=== PATIENT | female | born 2000 | race Caucasian/White ===

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

== ENCOUNTER 2020-05-10 11:47 | Emergency (ER) | payer OTHER, SELFPAY ==
--- NOTE | 2020-05-10 14:01 | REP ---
Left wrist series: Four views. History: Left upper extremity pain after trauma. Kicked by a horse. Findings: For views of the left wrist demonstrate normal bones, joints, and soft tissues. No fracture or subluxation is seen. Impression: Negative radiographs of the left wrist. Electronically Signed by Gage Gregory MD 05/10/2020 01:53 P
--- NOTE | 2020-05-10 14:02 | REP ---
Left hand series: Four views. History: Left hand pain after being kicked by horse. Findings: Four views of the left hand demonstrate soft tissue swelling and possible subtle irregularity along the radial aspect of the second MCP joint. Overall mineralization pattern is normal. No fractures seen. No opaque foreign body is noted. Impression: No evidence of fracture or opaque foreign body seen. Electronically Signed by Gage Gregory MD 05/10/2020 01:54 P
[2020-05-10] MEDS ORDERED: BOOSTRIX/ADACEL VACCINE (DIPHTH/PERTUSS/ACELL/TETANUS) 0.5ML SYR IM ONE (14:15)
[2020-05-10] MEDS ORDERED: IBUPROFEN 800 MG TAB PO ONE (14:15)
[2020-05-10 14:25] VITALS: BP 106/72
== END 2020-05-10 14:45 | disposition home or self-care (01) ==
LOC: M ED 11:47
DX: S60.512A Abrasion of left hand, initial encounter (principal); S60.222A Contusion of left hand, initial encounter; S60.212A Contusion of left wrist, initial encounter; W55.82XA Struck by other mammals, initial encounter; Y92.89 Other specified places as the place of occurrence of the external cause; Y93.K9 Activity, other involving animal care; Y99.8 Other external cause status; F17.290 Nicotine dependence, other tobacco product, uncomplicated

== ENCOUNTER 2021-03-28 08:55 | Emergency (ER) | payer OTHER, SELFPAY ==
[~2021-03-28] VITALS: Ht 165.1 cm; Wt 79.5 kg
[2021-03-28] MEDS ORDERED: KETOROLAC 60MG 2ML VIAL IM ONE (11:35)
[2021-03-28 11:49] LABS: BASO % 0.2 % (0.0-1.0); EOS % 0.6 % (0.0-3.0); HEMATOCRIT 44.8 % (36.0-47.0); LYMPH # 1.3 10^3/uL (1.5-5.0); LYMPH % 26.9 % (24.0-44.0); MEAN CORPUSCULAR HEMOGLOBIN 29.3 pg (27.0-33.0); MEAN CORPUSCULAR HGB CONC 33.5 g/dl (32.0-36.5); MEAN CORPUSCULAR VOLUME 87.5 fl (80.0-96.0); MONO # 0.3 10^3/uL (0.0-0.8); MONO % 6.7 % (2.0-8.0); NEUTROPHILS # 3.1 10^3/uL (1.5-8.5); NEUTROPHILS % 65.2 % (36.0-66.0); PLATELET COUNT, AUTOMATED 136 10^3/uL (150-450); RED BLOOD COUNT 5.12 10^6/uL (4.00-5.40); WHITE BLOOD COUNT 4.8 10^3/uL (4.0-10.0)
--- NOTE | 2021-03-28 12:43 | REP ---
INDICATION: pain. COMPARISON: None TECHNIQUE: Three views FINDINGS: There is no evidence of an acute fracture or destructive osseous lesion. IMPRESSION: As above <Electronically signed by Enrique Solorio > 03/28/21 [id number]
[2021-03-28 13:43] VITALS: BP 113/67
== END 2021-03-28 13:44 | disposition home or self-care (01) ==
LOC: M ED 08:55
DX: L05.91 Pilonidal cyst without abscess (principal)
CPT/HCPCS: 36415; 72220; 84702; 85025; 86140; 96372; 99283; J1885

== ENCOUNTER 2022-01-03 21:13 | Emergency (ER) | payer OTHER ==
[~2022-01-03] VITALS: Ht 167.6 cm; Wt 81.4 kg
[2022-01-03 21:13] VITALS: BP 132/82
== END 2022-01-04 00:03 | disposition left against medical advice (07) ==
LOC: M ED 21:13
DX: Z53.21 Procedure and treatment not carried out due to patient leaving prior to being seen by health care provider (principal)

== ENCOUNTER 2022-02-24 11:43 | Emergency (ER) | payer OTHER ==
[~2022-02-24] VITALS: Ht 167.6 cm; Wt 83.2 kg
[2022-02-24 12:47] LABS: BASO % 0.2 % (0.0-1.0); EOS % 0.2 % (0.0-3.0); HEMATOCRIT 40.7 % (36.0-47.0); HEMOGLOBIN 14.3 g/dl (12.0-15.5); LYMPH # 1.1 10^3/uL (1.5-5.0); LYMPH % 22.8 % (24.0-44.0); MEAN CORPUSCULAR HEMOGLOBIN 30.4 pg (27.0-33.0); MEAN CORPUSCULAR HGB CONC 35.1 g/dl (32.0-36.5); MEAN CORPUSCULAR VOLUME 86.6 fl (80.0-96.0); MONO # 0.3 10^3/uL (0.0-0.8); MONO % 5.5 % (2.0-8.0); NEUTROPHILS # 3.5 10^3/uL (1.5-8.5); NEUTROPHILS % 70.9 % (36.0-66.0); PLATELET COUNT, AUTOMATED 134 10^3/uL (150-450); WHITE BLOOD COUNT 4.9 10^3/uL (4.0-10.0)
[2022-02-24 13:08] LABS: ALBUMIN 4.1 GM/DL (3.2-5.2); ALT/SGPT 17 U/L (12-78); BILIRUBIN,DIRECT 0.2 MG/DL (0.0-0.2); BILIRUBIN,TOTAL 1.7 MG/DL (0.2-1.0); BLOOD UREA NITROGEN 13 MG/DL (7-18); CALCIUM LEVEL 9.6 MG/DL (8.5-10.1); CARBON DIOXIDE LEVEL 24 MEQ/L (21-32); CHLORIDE LEVEL 108 MEQ/L (98-107); CREATININE FOR GFR 0.78 MG/DL (0.55-1.30); FREE T4 1.15 NG/DL (0.76-1.46); GLOMERULAR FILTRATION RATE > 60.0 (>60); GLUCOSE, FASTING 88 MG/DL (70-100); LIPASE 105 U/L (73-393); POTASSIUM SERUM 3.9 MEQ/L (3.5-5.1); SODIUM LEVEL 140 MEQ/L (136-145); TOTAL PROTEIN 7.5 GM/DL (6.4-8.2)
[2022-02-24 13:13] LABS: HCG, SERUM QUALITATIVE NEGATIVE (NEGATIVE)
[2022-02-24 13:29] LABS: CK-MB VALUE MASS < 1.0 NG/ML (<3.6); CPK CREATINE PHOSPHOKINASE 64 U/L (26-192); MB/CK RELATIVE INDEX 1.56 (< OR =4)
[2022-02-24] MEDS ORDERED: NS 1,000 ML IV ONE (14:05)
[2022-02-24] MEDS ORDERED: ISOVUE-370 76% 100ML VIAL As Ordered ONE (14:11)
[2022-02-24 16:15] VITALS: BP 124/58
[2022-02-24] MEDS ORDERED: ONDA4TAB6 PO (17:32)
== END 2022-02-24 17:53 | disposition home or self-care (01) ==
LOC: M ED 11:43
DX: R06.02 Shortness of breath (principal); R42 Dizziness and giddiness; R11.0 Nausea; F17.290 Nicotine dependence, other tobacco product, uncomplicated
CPT/HCPCS: 70450; 70551; 71045; 74177; 80048; 80076; 82550; 82553; 83690; 84439; 84443; 84703; 85025; 85379; 87486; 87581; 87633; 87798; 93005; 93041; 94760; 96360; 96361; 99285; Q9967

== ENCOUNTER → 2022-11-13 | Outpatient (REF) | payer OTHER ==
[~2022-11-13] MED LIST: ONDA4TAB6 PO
[2022-11-13 17:10] LABS: HCG, SERUM QUANTITATIVE 74617.7 MIU/ML (<4.2)
[2022-11-13 17:14] LABS: HCG, SERUM QUALITATIVE POSITIVE (NEGATIVE)
== END ==
LOC: M SFHCCLAY 13:40
PROVIDERS: ATTEND Nurse Practitioner Family
DX: Z32.01 Encounter for pregnancy test, result positive (principal)

== ENCOUNTER → 2022-12-03 | Outpatient (REF) | payer OTHER | LOC: M PLALAB 13:24 | PROVIDERS: ATTEND Advanced Practice Midwife | DX: Z34.01 Encounter for supervision of normal first pregnancy, first trimester (principal); Z53.9 Procedure and treatment not carried out, unspecified reason ==

== ENCOUNTER → 2022-12-10 | Outpatient (CLI) | payer OTHER | LOC: M PLALAB 13:17 | PROVIDERS: ATTEND Advanced Practice Midwife | DX: Z34.01 Encounter for supervision of normal first pregnancy, first trimester (principal) ==

== ENCOUNTER → 2023-04-24 | Outpatient (CLI) | payer OTHER ==
[2023-04-24 10:24] LABS: HEMATOCRIT 32.2 % (36.0-47.0); HEMOGLOBIN 10.8 g/dl (12.0-15.5); MEAN CORPUSCULAR HEMOGLOBIN 30.8 pg (27.0-33.0); MEAN CORPUSCULAR HGB CONC 33.5 g/dl (32.0-36.5); MEAN CORPUSCULAR VOLUME 91.7 fl (80.0-96.0); PLATELET COUNT, AUTOMATED 107 10^3/uL (150-450); RED BLOOD COUNT 3.51 10^6/uL (4.00-5.40); WHITE BLOOD COUNT 8.8 10^3/uL (4.0-10.0)
[2023-04-24 11:33] LABS: HIV 1&2 SCREEN NEGATIVE (NEGATIVE)
[2023-04-24 11:41] LABS: HEPATITIS C VIRUS ABY INDEX 0.08 INDEX (<0.8)
== END ==
LOC: M PLALAB 08:10
PROVIDERS: ATTEND Advanced Practice Midwife
DX: Z34.02 Encounter for supervision of normal first pregnancy, second trimester (principal)

== ENCOUNTER 2024-06-26 05:49 | Emergency (ER) | payer MEDICAID, OTHER ==
[~2024-06-26] VITALS: Ht 167.6 cm; Wt 106.2 kg
[~2024-06-26 05:49] MED LIST changes: +ESCI5SOL3 PO; +LEXA1TAB2 PO; +ONDA-282 PO; -ONDA4TAB6 PO
[2024-06-26] MEDS ORDERED: APAP325T4 PO (05:58)
[2024-06-26] MEDS: ACETAMINOPHEN TAB 650MG DOSE (2X325MG) PO ONE (07:38)
[2024-06-26] MEDS: methocarbamoL 500 MG TAB PO ONE (07:38)
[2024-06-26 07:44] LABS: BASO % 0.4 % (0.0-1.0); EOS # 0.6 10^3/uL (0.0-0.5); EOS % 11.6 % (0.0-3.0); HEMATOCRIT 38.9 % (36.0-47.0); HEMOGLOBIN 12.5 g/dl (12.0-15.5); LYMPH # 1.4 10^3/uL (1.5-5.0); MEAN CORPUSCULAR HEMOGLOBIN 27.5 pg (27.0-33.0); MEAN CORPUSCULAR HGB CONC 32.1 g/dl (32.0-36.5); MEAN CORPUSCULAR VOLUME 85.7 fl (80.0-96.0); MONO # 0.4 10^3/uL (0.0-0.8); MONO % 7.4 % (2.0-8.0); NEUTROPHILS # 2.4 10^3/uL (1.5-8.5); NEUTROPHILS % 50.4 % (36.0-66.0); PLATELET COUNT, AUTOMATED 153 10^3/uL (150-450); RED BLOOD COUNT 4.54 10^6/uL (4.00-5.40); WHITE BLOOD COUNT 4.7 10^3/uL (4.0-10.0)
[2024-06-26 08:16] LABS: LIPASE 33 U/L (12-53)
[2024-06-26 08:17] LABS: ERYTHROCYTE SEDIMENTATION RATE 36 mm/hr (0-20)
[2024-06-26 08:18] LABS: ALBUMIN 3.5 G/DL (3.2-5.2); ALKALINE PHOSPHATASE 90 U/L (46-116); ALT/SGPT 17 U/L (7.0-40); AST/SGOT 13 U/L (<34); BILIRUBIN,DIRECT 0.2 MG/DL (<0.4); BILIRUBIN,TOTAL 0.9 MG/DL (0.3-1.2); CK-MB VALUE MASS < 1.0 NG/ML (<3.6); TOTAL PROTEIN 6.6 G/DL (5.7-8.2)
[2024-06-26 08:26] LABS: CPK CREATINE PHOSPHOKINASE 56 U/L (34-145); MB/CK RELATIVE INDEX 1.78 (< OR =4)
[2024-06-26 08:29] LABS: HCG, SERUM QUALITATIVE NEGATIVE (NEGATIVE)
[2024-06-26] MEDS: NS 500 ML IV ONE (08:55)
[2024-06-26] MEDS: KETOROLAC 30 MG/ML 1ML VIAL IV ONE (08:56)
[2024-06-26] MEDS ORDERED: FAMO10TA50 PO (09:36)
[2024-06-26] MEDS ORDERED: METH-1164 PO (09:36)
[2024-06-26 09:41] VITALS: BP 138/82; TEMP 97.2; O2SAT 98
== END 2024-06-26 10:06 | disposition home or self-care (01) ==
LOC: M ED 05:49
DX: M62.838 Other muscle spasm (principal); R10.13 Epigastric pain; F41.9 Anxiety disorder, unspecified; F17.290 Nicotine dependence, other tobacco product, uncomplicated; Z79.899 Other long term (current) drug therapy
CPT/HCPCS: 71046; 80047; 80076; 81001; 82550; 82553; 83690; 84484; 84703; 85025; 85652; 93005; 93041; 96361; 96374; 99284; J1885

== ENCOUNTER 2024-08-20 15:21 | Emergency (ER) | payer OTHER ==
[~2024-08-20] VITALS: Ht 167.6 cm; Wt 106.4 kg
[~2024-08-20 15:21] MED LIST changes: +APAP325T4 PO; +FAMO10TA50 PO; +METH-1164 PO
[2024-08-20 16:14] LABS: BASO % 0.5 % (0.0-1.0); EOS # 0.1 10^3/uL (0.0-0.5); HEMATOCRIT 38.2 % (36.0-47.0); HEMOGLOBIN 12.5 g/dl (12.0-15.5); LYMPH # 1.1 10^3/uL (1.5-5.0); LYMPH % 25.3 % (24.0-44.0); MEAN CORPUSCULAR HEMOGLOBIN 27.8 pg (27.0-33.0); MEAN CORPUSCULAR HGB CONC 32.7 g/dl (32.0-36.5); MEAN CORPUSCULAR VOLUME 85.1 fl (80.0-96.0); MONO # 0.4 10^3/uL (0.0-0.8); NEUTROPHILS # 2.7 10^3/uL (1.5-8.5); PLATELET COUNT, AUTOMATED 173 10^3/uL (150-450); RED BLOOD COUNT 4.49 10^6/uL (4.00-5.40); WHITE BLOOD COUNT 4.4 10^3/uL (4.0-10.0)
[2024-08-20 16:47] LABS: BLOOD UREA NITROGEN 14 MG/DL (9-23); CALCIUM LEVEL 9.4 MG/DL (8.5-10.1); CARBON DIOXIDE LEVEL 27 MMOL/L (20-31); CHLORIDE LEVEL 107 MMOL/L (98-107); CREATININE FOR GFR 0.74 MG/DL (0.55-1.30); GLOMERULAR FILTRATION RATE > 60.0 (>60); GLUCOSE, FASTING 84 MG/DL (60-100); POTASSIUM SERUM 3.8 MMOL/L (3.5-5.1); SODIUM LEVEL 138 MMOL/L (136-145)
[2024-08-20 16:49] LABS: THYROID STIMULATING HORMONE 0.626 uIU/ML (0.55-4.78)
[2024-08-20 16:52] LABS: HCG, SERUM QUALITATIVE NEGATIVE (NEGATIVE)
[2024-08-20] MEDS ORDERED: ISOVUE-370 76% 100ML VIAL As Ordered ONE (17:05)
[2024-08-20] MEDS ORDERED: HOLTER MONITOR XX (18:08)
[2024-08-20 18:21] VITALS: BP 112/74; TEMP 97.2; O2SAT 95
== END 2024-08-20 18:23 | disposition home or self-care (01) ==
LOC: EDBD 15:21 → M ED 15:21
DX: R55 Syncope and collapse (principal); F41.9 Anxiety disorder, unspecified; F32.A Depression, unspecified; Z79.899 Other long term (current) drug therapy
CPT/HCPCS: 71275; 80048; 84443; 84703; 85025; 93005; 93041; 94760; 99285; Q9967

== ENCOUNTER → 2024-08-26 | Outpatient (CLI) | payer OTHER ==
[~2024-08-26] MED LIST changes: +HOLTER MONITOR XX
== END ==
LOC: M EKG 12:00
PROVIDERS: ATTEND Physician Assistant
DX: R00.2 Palpitations (principal)

== ENCOUNTER 2025-02-07 08:18 | Emergency (ER) | payer OTHER ==
[~2025-02-07] VITALS: Ht 167.6 cm; Wt 105.9 kg
[2025-02-07 08:22] VITALS: BP 106/64; TEMP 97.6; O2SAT 100
== END 2025-02-07 09:07 | disposition left against medical advice (07) ==
LOC: M ED 08:18
DX: Z53.21 Procedure and treatment not carried out due to patient leaving prior to being seen by health care provider (principal)

== ENCOUNTER 2025-06-11 08:37 | Emergency (ER) | payer OTHER ==
[~2025-06-11] VITALS: Ht 167.6 cm; Wt 108.0 kg
[2025-06-11 08:41] VITALS: TEMP 97
[2025-06-11 09:27] LABS: KETONE, URINE AUTO RFX NEGATIVE (NEGATIVE); NITRITE, URINE AUTO RFX NEGATIVE (NEGATIVE); RBC, URINE AUTO RFX 2 /HPF (0-3); SQUAM EPITHELIAL CELL UR AURFX 11 /HPF (0-6)
[2025-06-11 09:37] LABS: LEUKOCYTE ESTERASE UR AUTO RFX 1+ (NEGATIVE); WBC, URINE AUTO RFX 11 /HPF (0-3)
[2025-06-11] MEDS ORDERED: CEPH500C PO (11:41)
[2025-06-11] MEDS ORDERED: ONDA-282 PO (11:41)
[2025-06-11 12:00] VITALS: BP 97/63; O2SAT 100
== END 2025-06-11 12:15 | disposition home or self-care (01) ==
LOC: M ED 08:37
DX: O99.513 Diseases of the respiratory system complicating pregnancy, third trimester (principal); O23.43 Unspecified infection of urinary tract in pregnancy, third trimester; Z3A.32 32 weeks gestation of pregnancy; Z79.899 Other long term (current) drug therapy

== ENCOUNTER 2025-06-22 08:17 | Emergency (ER) | payer OTHER ==
[~2025-06-22] VITALS: Ht 167.6 cm; Wt 107.4 kg
[~2025-06-22 08:17] MED LIST changes: +CEPH500C PO
[2025-06-22 08:20] VITALS: BP 106/65; TEMP 97.7; O2SAT 99
[2025-06-22] MEDS ORDERED: LEXA1TAB2 PO (10:46)
== END 2025-06-22 08:45 | disposition admitted as inpatient to this hospital (09) ==
LOC: M ED 08:17
DX: Z53.21 Procedure and treatment not carried out due to patient leaving prior to being seen by health care provider (principal)

== ENCOUNTER 2025-06-22 08:44 | Outpatient (CLI) | payer OTHER ==
[~2025-06-22] VITALS: Ht 167.6 cm; Wt 107.8 kg
[2025-06-22] MEDS ORDERED: HOME MED LIST COMPLETE! XX SCH (09:00)
[2025-06-22 09:10] VITALS: BP 99/56
[2025-06-22 09:35] LABS: PLATELET COUNT, AUTOMATED 104 10^3/uL (150-450)
[2025-06-22] MEDS: LACTATED RINGER'S 1000 ML IV STA (09:41)
[2025-06-22 09:42] VITALS: BP 101/67
[2025-06-22 10:00] LABS: ALT/SGPT 27 U/L (7.0-40); AST/SGOT 26 U/L (<34); CALCIUM LEVEL 8.7 MG/DL (8.5-10.1); CARBON DIOXIDE LEVEL 21 MMOL/L (20-31); CHLORIDE LEVEL 106 MMOL/L (98-107); CREATININE FOR GFR 0.66 MG/DL (0.55-1.30); GLOMERULAR FILTRATION RATE > 90.0 (>60); POTASSIUM SERUM 4.0 MMOL/L (3.5-5.1); SODIUM LEVEL 140 MMOL/L (136-145)
[2025-06-22] MEDS ORDERED: LEXA1TAB2 PO (10:46)
[2025-06-22 10:49] VITALS: BP 106/68
[2025-06-22] MEDS: LR 1,000 ML IV SCH (11:01)
[2025-06-22 11:49] VITALS: BP 108/62
[2025-06-22 12:53] VITALS: BP 108/67
== END 2025-06-22 13:41 | disposition home or self-care (01) ==
LOC: M LDO 08:44
PROVIDERS: ATTEND Specialist
DX: O21.8 Other vomiting complicating pregnancy (principal); Z87.51 Personal history of pre-term labor; Z3A.33 33 weeks gestation of pregnancy
CPT/HCPCS: 36415; 59025; 80053; 85027; G0463

== ENCOUNTER 2025-06-23 07:18 | Outpatient (CLI) | payer OTHER ==
[~2025-06-23] VITALS: Ht 167.6 cm; Wt 108.8 kg
[2025-06-23 07:40] VITALS: BP 110/70
[2025-06-23] MEDS ORDERED: HOME MED LIST COMPLETE! XX SCH (07:40)
[2025-06-23 08:27] LABS: PLATELET COUNT, AUTOMATED 109 10^3/uL (150-450)
[2025-06-23] MEDS: PANTOPRAZOLE 40MG VIAL IV ONE (08:27)
[2025-06-23] MEDS: LR 1,000 ML IV SCH (08:27)
[2025-06-23 08:37] LABS: APPEARANCE, URINE HAZY (CLEAR); BACTERIA, URINE AUTO 2+ (NEGATIVE); BILIRUBIN, URINE AUTO NEGATIVE (NEGATIVE); BLOOD, URINE BLOOD NEGATIVE (NEGATIVE); GLUCOSE, URINE (UA) AUTO NEGATIVE (NEGATIVE); KETONE, URINE AUTO TRACE mg/dL (NEGATIVE); LEUKOCYTE ESTERASE, URINE AUTO TRACE (NEGATIVE); MUCUS, URINE SMALL (NEGATIVE); NITRITE, URINE AUTO NEGATIVE (NEGATIVE); PROTEIN, URINE AUTO NEGATIVE (NEGATIVE); RBC, URINE AUTO 1 /HPF (0-3); SPECIFIC GRAVITY URINE AUTO 1.010 (1.002-1.035); SQUAMOUS EPITHELIAL CELL UR AU 4 /HPF (0-6); UROBILINOGEN, URINE AUTO 2.0 mg/dL (0.0-2.0); WBC, URINE AUTO 6 /HPF (0-3)
[2025-06-23 08:58] LABS: AMPHETAMINES URINE REFLEX NEGATIVE (NEGATIVE); BARBITURATES URINE REFLEX NEGATIVE (NEGATIVE); BENZODIAZEPINES URINE REFLEX NEGATIVE (NEGATIVE); COCAINE METABOLITE URINE REFLE NEGATIVE (NEGATIVE); METHADONE URINE REFLEX NEGATIVE (NEGATIVE); OPIATES URINE REFLEX NEGATIVE (NEGATIVE)
[2025-06-23 08:59] LABS: CANNABINOIDS URINE REFLEX NEGATIVE (NEGATIVE); PHENCYCLIDINE URINE REFLEX NEGATIVE (NEGATIVE)
[2025-06-23 09:10] LABS: ALT/SGPT 26 U/L (7.0-40); AST/SGOT 19 U/L (<34); CALCIUM LEVEL 8.9 MG/DL (8.5-10.1); CARBON DIOXIDE LEVEL 24 MMOL/L (20-31); CHLORIDE LEVEL 106 MMOL/L (98-107); CREATININE FOR GFR 0.62 MG/DL (0.55-1.30); GLOMERULAR FILTRATION RATE > 90.0 (>60); POTASSIUM SERUM 4.0 MMOL/L (3.5-5.1); SODIUM LEVEL 143 MMOL/L (136-145)
[2025-06-23] MEDS: ONDANSETRON 4MG 2ML VIAL IV ONE (09:15)
[2025-06-23 10:11] VITALS: BP 108/58
[2025-06-23 11:14] VITALS: BP 106/55
[2025-06-23 12:13] VITALS: BP 98/54
[2025-06-23 13:26] VITALS: BP 101/59
== END 2025-06-23 14:40 | disposition home or self-care (01) ==
LOC: M LDO 07:18
PROVIDERS: ATTEND Advanced Practice Midwife
DX: O21.9 Vomiting of pregnancy, unspecified (principal); O09.213 Supervision of pregnancy with history of pre-term labor, third trimester; O99.333 Smoking (tobacco) complicating pregnancy, third trimester; F17.210 Nicotine dependence, cigarettes, uncomplicated; Z3A.33 33 weeks gestation of pregnancy
CPT/HCPCS: 59025; 80053; 80307; 81001; 82150; 83690; 85027; 87081; 96360; 96361; 96374; 96375; G0463; J2405; J2470; J2550

== ENCOUNTER 2025-07-18 16:35 | Outpatient (CLI) | payer OTHER ==
[~2025-07-18] VITALS: Ht 167.6 cm; Wt 107.1 kg
[2025-07-18 16:52] VITALS: BP 115/73
[2025-07-18] MEDS ORDERED: HOME MED LIST COMPLETE! XX SCH (16:55)
[2025-07-18 18:57] VITALS: BP 114/75
[2025-07-18 19:14] LABS: APPEARANCE, URINE HAZY (CLEAR); BACTERIA, URINE AUTO NEGATIVE (NEGATIVE); BILIRUBIN, URINE AUTO NEGATIVE (NEGATIVE); BLOOD, URINE BLOOD NEGATIVE (NEGATIVE); GLUCOSE, URINE (UA) AUTO NEGATIVE (NEGATIVE); KETONE, URINE AUTO NEGATIVE (NEGATIVE); LEUKOCYTE ESTERASE, URINE AUTO NEGATIVE (NEGATIVE); MUCUS, URINE SMALL (NEGATIVE); NITRITE, URINE AUTO NEGATIVE (NEGATIVE); PROTEIN, URINE AUTO NEGATIVE (NEGATIVE); RBC, URINE AUTO 0 /HPF (0-3); SPECIFIC GRAVITY URINE AUTO 1.019 (1.002-1.035); SQUAMOUS EPITHELIAL CELL UR AU 2 /HPF (0-6); UROBILINOGEN, URINE AUTO 4.0 mg/dL (0.0-2.0); WBC, URINE AUTO 0 /HPF (0-3)
== END 2025-07-18 19:32 | disposition home or self-care (01) ==
LOC: M LDO 16:35
PROVIDERS: ATTEND Obstetrics & Gynecology
DX: O47.1 False labor at or after 37 completed weeks of gestation (principal); Z3A.37 37 weeks gestation of pregnancy; O09.213 Supervision of pregnancy with history of pre-term labor, third trimester
CPT/HCPCS: 59025; 81001; G0463

== ENCOUNTER 2025-07-25 03:03 | Inpatient (IN) | payer OTHER ==
[2025-07-25] VITALS (43 sets, daily range): BP systolic 88–148; BP diastolic 50–87; O2SAT 98
[~2025-07-25] VITALS: Ht 167.6 cm; Wt 105.6 kg
[2025-07-25] MEDS ORDERED: HOME MED LIST COMPLETE! XX SCH (03:40)
[2025-07-25 04:56] LABS: PLATELET COUNT, AUTOMATED 104 10^3/uL (150-450)
[2025-07-25] MEDS ORDERED: OXYTOCIN DRIP 30 UNITS in IV 1 EA IV PRN (05:05)
[2025-07-25] MEDS ORDERED: LIDOCAINE 1% MDV 20 ML VIAL INFIL PRN (05:05)
[2025-07-25] MEDS ORDERED: diphenhydrAMINE 50 MG/ML VIAL IV PRN (05:20)
[2025-07-25] MEDS ORDERED: ONDANSETRON 4MG 2ML VIAL IV PRN (05:20)
[2025-07-25] MEDS ORDERED: NALOXONE INJ 0.4 MG/1 ML VIAL IV PRN (05:20)
[2025-07-25] MEDS ORDERED: EPIDURAL/PCA KEYS XX PRN (05:20)
[2025-07-25] MEDS: FENTANYL/ROPIVACAINE/NACL BAG 100 ML EPIDURAL SCH (05:23)
[2025-07-25] MEDS: LR 1,000 ML IV SCH (05:26)
[2025-07-25] MEDS: LACTATED RINGER'S 1000 ML IV STA (05:26)
[2025-07-25 06:31] LABS: HIV 1&2 SCREEN NEGATIVE (NEGATIVE)
[2025-07-25 06:38] LABS: HEPATITIS C VIRUS ABY INDEX < 0.02 INDEX (<0.8)
[2025-07-25] MEDS: LR 500 ML IV PRN (06:54)
[2025-07-25] MEDS ORDERED: DIBUCAINE 1% OINTMENT 30 GM TOP PRN (09:30)
[2025-07-25] MEDS ORDERED: METHYLERGONOVINE MALEATE 0.2 MG TAB PO PRN (09:30)
[2025-07-25] MEDS ORDERED: DOCUSATE SODIUM 100 MG CAPSULE PO PRN (09:30)
[2025-07-25] MEDS: IBUPROFEN 600 MG TAB PO PRN (10:00)
[2025-07-25] MEDS: ESCITALOPRAM OXALATE 10 MG TABLET PO SCH (10:13)
[2025-07-25] MEDS: ACETAMINOPHEN 325 MG TAB PO PRN (10:19)
[2025-07-25] MEDS: ACETAMINOPHEN 500 MG TAB PO PRN (17:28)
[2025-07-25] MEDS: RHOGAM 300MCG (1500IU) INJ IM SCH (20:35)
[2025-07-26] MEDS: IBUPROFEN 800 MG TAB PO PRN (05:28)
[2025-07-26 05:49] VITALS: BP 123/73; O2SAT 98
[2025-07-26] MEDS: PRENATAL VITAMINS CHEWABLE TABLET PO SCH (09:00)
[2025-07-26] MEDS ORDERED: ACET-683 PO (10:25)
[2025-07-26] MEDS ORDERED: IBUP80TA PO (10:25)
[2025-07-26 18:00] VITALS: BP 104/68; O2SAT 97
[2025-07-26] MEDS: MEASLES,MUMPS,RUBELLA VACCINE INJ (MMR-II) SC.IMMUN ONE (19:06)
[2025-07-27 06:05] VITALS: BP 111/58; O2SAT 98
[2025-07-27] MEDS: ONDANSETRON 4MG TAB PO ONE (10:08)
[2025-07-27 13:08] LABS: PLATELET COUNT, AUTOMATED 132 10^3/uL (150-450)
[2025-07-27] MEDS ORDERED: FERR325T3 PO (13:59)
== END 2025-07-27 15:30 | disposition home or self-care (01) | DRG 807 ==
LOC: M LDO 03:03 → M LDI 03:57 → M OBS 16:57
PROVIDERS: ADMIT Specialist; ATTEND Specialist
PROC: 10E0XZZ Delivery of Products of Conception, External Approach (ICD-10-PCS; principal; 2025-07-25)
PROC: 10907ZC Drainage of Amniotic Fluid, Therapeutic from Products of Conception, Via Natural or Artificial Opening (ICD-10-PCS; 2025-07-25)
DX: O80 Encounter for full-term uncomplicated delivery (principal); Z37.0 Single live birth; Z3A.38 38 weeks gestation of pregnancy